=== PATIENT | female | born 1970 | race Caucasian/White ===

== ENCOUNTER 2017-05-01 23:11 | Emergency (ER) | payer MEDICAID ==
[~2017-05-01] VITALS: Ht 157.5 cm; Wt 63.0 kg
[2017-05-01 23:59] VITALS: BP 133/54
== END 2017-05-02 07:36 | disposition left against medical advice (07) ==
LOC: ER 23:11
DX: J45.909 Unspecified asthma, uncomplicated (principal); Z53.21 Procedure and treatment not carried out due to patient leaving prior to being seen by health care provider